=== PATIENT | male | born 1975 | race Caucasian/White ===

== ENCOUNTER 2023-08-04 20:53 | Emergency (ER) | payer OTHER ==
[~2023-08-04] VITALS: Ht 177.8 cm; Wt 100.0 kg
[~2023-08-04 20:53] MED LIST: ATIV2TAB PO; BUSP10TA PO; CLONI1TA PO; ZOLO100T PO
[2023-08-04] MEDS ORDERED: ATIV1TAB7 PO (22:01)
[2023-08-04] MEDS ORDERED: HOME MED LIST COMPLETE! XX SCH (22:05)
[2023-08-04 22:52] LABS: HEMATOCRIT 44.8 % (42.0-52.0); HEMOGLOBIN 15.3 g/dl (13.5-17.5); MEAN CORPUSCULAR HEMOGLOBIN 33.6 pg (27.0-33.0); MEAN CORPUSCULAR HGB CONC 34.2 g/dl (32.0-36.5); MEAN CORPUSCULAR VOLUME 98.5 fl (80.0-96.0); PLATELET COUNT, AUTOMATED 227 10^3/uL (150-450); RED BLOOD COUNT 4.55 10^6/uL (4.30-6.10)
[2023-08-04 23:17] LABS: AMPHETAMINES LEVEL URINE NEGATIVE (NEGATIVE); BARBITURATES URINE NEGATIVE (NEGATIVE); BENZODIAZEPINES URINE NEGATIVE (NEGATIVE); CANNABINOIDS URINE NEGATIVE (NEGATIVE); COCAINE METABOLITE URINE NEGATIVE (NEGATIVE); METHADONE URINE NEGATIVE (NEGATIVE); OPIATES URINE NEGATIVE (NEGATIVE); PHENCYCLIDINE URINE NEGATIVE (NEGATIVE)
[2023-08-04 23:21] LABS: ALBUMIN 3.1 G/DL (3.2-5.2); ALKALINE PHOSPHATASE 109 U/L (46-116); ALT/SGPT 18 U/L (7.0-40); AST/SGOT 15 U/L (<34); BILIRUBIN,DIRECT < 0.1 MG/DL (<0.4); BILIRUBIN,TOTAL 0.2 MG/DL (0.3-1.2); BLOOD UREA NITROGEN 7 MG/DL (9-23); CALCIUM LEVEL 7.8 MG/DL (8.5-10.1); CARBON DIOXIDE LEVEL 28 MMOL/L (20-31); CHLORIDE LEVEL 110 MMOL/L (98-107); CREATININE FOR GFR 0.65 MG/DL (0.70-1.30); GLOMERULAR FILTRATION RATE > 60.0 (>60); GLUCOSE, FASTING 107 MG/DL (60-100); POTASSIUM SERUM 3.8 MMOL/L (3.5-5.1); SALICYLATE LEVEL < 3.0 MG/DL (<30); SODIUM LEVEL 145 MMOL/L (136-145); TOTAL PROTEIN 6.3 G/DL (5.7-8.2)
[2023-08-04 23:23] LABS: THYROID STIMULATING HORMONE 0.986 uIU/ML (0.55-4.78)
[2023-08-05 05:08] VITALS: TEMP 97.1; O2SAT 99
[2023-08-05] MEDS ORDERED: OXAZEPAM 15MG CAP PO ONE ×2 (05:15→12:25)
[2023-08-05] MEDS ORDERED: MULTIVITAMINS/MINERALS THERAP 1 TAB PO SCH (09:00)
[2023-08-05] MEDS ORDERED: FOLIC ACID 1MG TAB PO SCH (09:00)
[2023-08-05] MEDS ORDERED: THIAMINE 100 MG TAB PO SCH (09:00)
[2023-08-05] MEDS ORDERED: SERTRALINE 100 MG TAB PO SCH (10:00)
[2023-08-05] MEDS ORDERED: busPIRone 10 MG TAB PO SCH (10:00)
[2023-08-05] MEDS ORDERED: LORazepam 2 MG TAB PO PRN (12:25)
[2023-08-05 14:20] VITALS: BP 130/88
== END 2023-08-05 16:00 | disposition home or self-care (01) ==
LOC: M ED 20:53
DX: F10.129 Alcohol abuse with intoxication, unspecified (principal); F32.A Depression, unspecified; Z79.899 Other long term (current) drug therapy

== ENCOUNTER 2023-08-13 23:44 | Emergency (ER) | payer OTHER ==
[~2023-08-13 23:44] MED LIST changes: +ATIV1TAB7 PO
[2023-08-14 02:44] LABS: HEMATOCRIT 42.2 % (42.0-52.0); HEMOGLOBIN 14.4 g/dl (13.5-17.5); MEAN CORPUSCULAR HGB CONC 34.1 g/dl (32.0-36.5); MEAN CORPUSCULAR VOLUME 96.8 fl (80.0-96.0); PLATELET COUNT, AUTOMATED 213 10^3/uL (150-450); RED BLOOD COUNT 4.36 10^6/uL (4.30-6.10); WHITE BLOOD COUNT 5.4 10^3/uL (4.0-10.0)
[2023-08-14] MEDS ORDERED: OXAZEPAM 15MG CAP PO ONE (03:00)
[2023-08-14 03:23] LABS: AMPHETAMINES LEVEL URINE NEGATIVE (NEGATIVE); BARBITURATES URINE NEGATIVE (NEGATIVE); BENZODIAZEPINES URINE NEGATIVE (NEGATIVE); COCAINE METABOLITE URINE NEGATIVE (NEGATIVE); METHADONE URINE NEGATIVE (NEGATIVE); OPIATES URINE NEGATIVE (NEGATIVE); PHENCYCLIDINE URINE NEGATIVE (NEGATIVE)
[2023-08-14 03:37] LABS: CANNABINOIDS URINE POSITIVE (NEGATIVE)
[2023-08-14 03:49] LABS: ETHYL ALCOHOL (ETHANOL) 0.254 % (0.000-0.010)
[2023-08-14 03:50] LABS: ALKALINE PHOSPHATASE 99 U/L (46-116); ALT/SGPT 19 U/L (7.0-40); AST/SGOT 20 U/L (<34); BILIRUBIN,DIRECT < 0.1 MG/DL (<0.4); BILIRUBIN,TOTAL < 0.2 MG/DL (0.3-1.2); BLOOD UREA NITROGEN 11 MG/DL (9-23); CALCIUM LEVEL 7.2 MG/DL (8.5-10.1); CARBON DIOXIDE LEVEL 25 MMOL/L (20-31); CHLORIDE LEVEL 106 MMOL/L (98-107); CREATININE FOR GFR 0.61 MG/DL (0.70-1.30); GLOMERULAR FILTRATION RATE > 60.0 (>60); GLUCOSE, FASTING 92 MG/DL (60-100); POTASSIUM SERUM 3.7 MMOL/L (3.5-5.1); SALICYLATE LEVEL < 3.0 MG/DL (<30); SODIUM LEVEL 142 MMOL/L (136-145); TOTAL PROTEIN 5.8 G/DL (5.7-8.2)
[2023-08-14 03:52] LABS: THYROID STIMULATING HORMONE 1.127 uIU/ML (0.55-4.78)
[2023-08-14 03:57] LABS: CPK CREATINE PHOSPHOKINASE 58 U/L (46-171)
[2023-08-14 08:30] VITALS: BP 122/77; TEMP 97.5; O2SAT 97
== END 2023-08-14 09:10 | disposition short-term general hospital (02) ==
LOC: M ED 23:44 → EDBD 23:44 → M ED 08-14 09:10
DX: F10.129 Alcohol abuse with intoxication, unspecified (principal); F32.A Depression, unspecified; Z79.899 Other long term (current) drug therapy

== ENCOUNTER 2023-08-29 22:20 | Emergency (ER) | payer OTHER ==
[~2023-08-29] VITALS: Ht 177.8 cm; Wt 109.1 kg
[2023-08-29 22:21] VITALS: TEMP 97; O2SAT 95
[2023-08-29] MEDS ORDERED: KETOROLAC 60MG 2ML VIAL IM ONE (23:45)
[2023-08-30] MEDS ORDERED: OXAZEPAM 15MG CAP PO ONE (02:35)
[2023-08-30] MEDS ORDERED: NS 1,000 ML IV ONE (03:00)
[2023-08-30 03:47] LABS: BASO % 0.5 % (0.0-1.0); EOS # 0.1 10^3/uL (0.0-0.5); EOS % 1.9 % (0.0-3.0); HEMATOCRIT 42.2 % (42.0-52.0); HEMOGLOBIN 14.4 g/dl (13.5-17.5); LYMPH # 1.5 10^3/uL (1.5-5.0); LYMPH % 26.8 % (24.0-44.0); MEAN CORPUSCULAR HEMOGLOBIN 32.7 pg (27.0-33.0); MEAN CORPUSCULAR HGB CONC 34.1 g/dl (32.0-36.5); MEAN CORPUSCULAR VOLUME 95.7 fl (80.0-96.0); MONO # 0.3 10^3/uL (0.0-0.8); MONO % 5.7 % (2.0-8.0); NEUTROPHILS # 3.7 10^3/uL (1.5-8.5); NEUTROPHILS % 64.9 % (36.0-66.0); PLATELET COUNT, AUTOMATED 168 10^3/uL (150-450); RED BLOOD COUNT 4.41 10^6/uL (4.30-6.10); WHITE BLOOD COUNT 5.8 10^3/uL (4.0-10.0)
[2023-08-30 04:00] VITALS: BP 176/103
[2023-08-30 04:13] LABS: ETHYL ALCOHOL (ETHANOL) 0.027 % (0.000-0.010)
[2023-08-30 04:16] LABS: BLOOD UREA NITROGEN 9 MG/DL (9-23); CALCIUM LEVEL 8.2 MG/DL (8.5-10.1); CARBON DIOXIDE LEVEL 25 MMOL/L (20-31); CHLORIDE LEVEL 103 MMOL/L (98-107); CREATININE FOR GFR 0.63 MG/DL (0.70-1.30); GLOMERULAR FILTRATION RATE > 60.0 (>60); GLUCOSE, FASTING 129 MG/DL (60-100); POTASSIUM SERUM 5.2 MMOL/L (3.5-5.1); SODIUM LEVEL 137 MMOL/L (136-145)
[2023-08-30] MEDS ORDERED: LORazepam 2 MG TAB PO STA (05:26)
[2023-08-30] MEDS ORDERED: amLODIPine 5 MG TAB PO ONE (06:05)
[2023-08-30 06:08] VITALS: BP 176/103
[2023-08-30] MEDS ORDERED: CLINDAMYCIN 150MG CAPSULE PO ONE (06:20)
[2023-08-30] MEDS ORDERED: CLIN150C17 PO (06:24)
[2023-08-30] MEDS ORDERED: OXAZ30CA2 PO (06:24)
== END 2023-08-30 06:49 | disposition home or self-care (01) ==
LOC: M ED 22:20
DX: K02.9 Dental caries, unspecified (principal); F10.220 Alcohol dependence with intoxication, uncomplicated
CPT/HCPCS: 80048; 82077; 85025; 96360; 96372; 99284; J1885

== ENCOUNTER 2023-09-03 20:12 | Inpatient (IN) | payer OTHER ==
[~2023-09-03] VITALS: Ht 177.8 cm; Wt 104.5 kg
[~2023-09-03 20:12] MED LIST changes: +CLIN150C17 PO; +OXAZ30CA2 PO
[2023-09-03 21:10] LABS: HEMATOCRIT 50.2 % (42.0-52.0); HEMOGLOBIN 17.5 g/dl (13.5-17.5); MEAN CORPUSCULAR HGB CONC 34.9 g/dl (32.0-36.5); MEAN CORPUSCULAR VOLUME 94.7 fl (80.0-96.0); PLATELET COUNT, AUTOMATED 269 10^3/uL (150-450)
[2023-09-03 21:23] LABS: AMPHETAMINES LEVEL URINE NEGATIVE (NEGATIVE); BARBITURATES URINE NEGATIVE (NEGATIVE); COCAINE METABOLITE URINE NEGATIVE (NEGATIVE); METHADONE URINE NEGATIVE (NEGATIVE)
[2023-09-03 21:24] LABS: OPIATES URINE NEGATIVE (NEGATIVE); PHENCYCLIDINE URINE NEGATIVE (NEGATIVE)
[2023-09-03 21:25] LABS: BENZODIAZEPINES URINE POSITIVE (NEGATIVE); CANNABINOIDS URINE POSITIVE (NEGATIVE); ETHYL ALCOHOL (ETHANOL) 0.269 % (0.000-0.010)
[2023-09-03 21:27] LABS: ALBUMIN 3.9 G/DL (3.2-5.2); ALKALINE PHOSPHATASE 124 U/L (46-116); ALT/SGPT 91 U/L (7.0-40); AST/SGOT 54 U/L (<34); BILIRUBIN,DIRECT < 0.1 MG/DL (<0.4); BILIRUBIN,TOTAL 0.2 MG/DL (0.3-1.2); BLOOD UREA NITROGEN 14 MG/DL (9-23); CALCIUM LEVEL 9.1 MG/DL (8.5-10.1); CARBON DIOXIDE LEVEL 24 MMOL/L (20-31); CHLORIDE LEVEL 103 MMOL/L (98-107); CREATININE FOR GFR 0.77 MG/DL (0.70-1.30); GLOMERULAR FILTRATION RATE > 60.0 (>60); GLUCOSE, FASTING 112 MG/DL (60-100); POTASSIUM SERUM 4.3 MMOL/L (3.5-5.1); SALICYLATE LEVEL < 3.0 MG/DL (<30); SODIUM LEVEL 139 MMOL/L (136-145); TOTAL PROTEIN 7.8 G/DL (5.7-8.2)
[2023-09-03 21:29] LABS: THYROID STIMULATING HORMONE 1.561 uIU/ML (0.55-4.78)
[2023-09-04] MEDS ORDERED: OXAZEPAM 15MG CAP PO ONE (04:35)
[2023-09-04] MEDS ORDERED: MED REC CURRENTLY UNOBTAINABLE XX SCH (06:10)
[2023-09-04] MEDS ORDERED: IBUPROFEN 400MG TAB PO PRN (06:55)
[2023-09-04] MEDS ORDERED: MAALOX 30 ML SUSP *UDC PO PRN (06:55)
[2023-09-04] MEDS ORDERED: LORazepam 2 MG TAB PO PRN (06:55)
[2023-09-04] MEDS ORDERED: ACETAMINOPHEN TAB 650MG DOSE (2X325MG) PO PRN (06:55)
[2023-09-04] MEDS ORDERED: MOM 30ML SUSPENSION UDC PO PRN (06:55)
[2023-09-04] MEDS ORDERED: diphenhydrAMINE 25MG CAP PO PRN (06:55)
[2023-09-04] MEDS: MULTIVITAMINS/MINERALS THERAP 1 TAB PO SCH (08:14)
[2023-09-04] MEDS: THIAMINE 100 MG TAB PO SCH ×2 (08:15→20:28)
[2023-09-04] MEDS: FOLIC ACID 1MG TAB PO SCH (08:15)
[2023-09-04 08:35] VITALS: BP 137/84; TEMP 97.6; O2SAT 97
[2023-09-04] MEDS ORDERED: OXAZ30CA2 PO (13:15)
[2023-09-04] MEDS ORDERED: TRAZ1TAB14 PO (13:15)
[2023-09-04] MEDS ORDERED: RISP-7 PO (13:15)
[2023-09-04] MEDS ORDERED: OXAZEPAM 10MG CAP PO SCH (13:20)
[2023-09-04 14:00] VITALS: BP 137/84
[2023-09-04] MEDS: SERTRALINE 100 MG TAB PO SCH (14:08)
[2023-09-04] MEDS: OXAZEPAM 15MG CAP PO SCH ×3 (14:09→23:57)
[2023-09-04] MEDS: busPIRone 10 MG TAB PO SCH ×2 (15:58→20:30)
[2023-09-04] MEDS: cloNIDine 0.1MG TABLET PO SCH ×2 (15:58→20:29)
[2023-09-04 16:04] LABS: HEPATITIS C VIRUS ABY INDEX 0.06 INDEX (<0.8)
[2023-09-04 16:05] LABS: HEPATITIS B CORE ANTIBODY IGM NEGATIVE (NEGATIVE)
[2023-09-04 16:56] VITALS: BP 150/76; TEMP 98
[2023-09-04] MEDS: traZODone 50 MG TAB PO PRN (20:28)
[2023-09-04] MEDS ORDERED: OXAZEPAM 15MG CAP PO SCH (22:00)
[2023-09-04 22:01] VITALS: BP 111/62
[2023-09-05 06:01] VITALS: BP 112/74; TEMP 97.4; O2SAT 96
[2023-09-05 06:07] VITALS: BP 112/74
[2023-09-05] MEDS: OXAZEPAM 15MG CAP PO SCH ×3 (06:10→18:04)
[2023-09-05] MEDS: SERTRALINE 100 MG TAB PO SCH (09:27)
[2023-09-05] MEDS: MULTIVITAMINS/MINERALS THERAP 1 TAB PO SCH (09:27)
[2023-09-05] MEDS: busPIRone 10 MG TAB PO SCH ×3 (09:27→20:35)
[2023-09-05] MEDS: FOLIC ACID 1MG TAB PO SCH (09:27)
[2023-09-05] MEDS: cloNIDine 0.1MG TABLET PO SCH ×3 (09:27→20:35)
[2023-09-05] MEDS: THIAMINE 100 MG TAB PO SCH ×2 (09:28→20:35)
[2023-09-05 12:19] LABS: ALBUMIN 3.4 G/DL (3.2-5.2); ALKALINE PHOSPHATASE 110 U/L (46-116); ALT/SGPT 65 U/L (7.0-40); AST/SGOT 31 U/L (<34); BILIRUBIN,DIRECT 0.2 MG/DL (<0.4); BILIRUBIN,TOTAL 0.5 MG/DL (0.3-1.2); TOTAL PROTEIN 6.8 G/DL (5.7-8.2)
[2023-09-05 14:00] VITALS: BP 119/60; TEMP 97.4
[2023-09-05 18:14] VITALS: BP 139/85; TEMP 97.7
[2023-09-05 20:32] VITALS: BP 142/83
[2023-09-05] MEDS: PILL CUTTER 1 EACH XX PRN (20:34)
[2023-09-05] MEDS: traZODone 50 MG TAB PO PRN (20:35)
[2023-09-05] MEDS: NICOTINE 21MG/24HR 1 EA TRANSDERMAL TD PRN (21:50)
[2023-09-05 22:00] VITALS: BP 120/60
[2023-09-06] MEDS: OXAZEPAM 15MG CAP PO SCH ×5 (00:07→23:40)
[2023-09-06 06:28] VITALS: BP 127/76; TEMP 97.3; O2SAT 98
[2023-09-06 08:00] VITALS: BP 127/76
[2023-09-06] MEDS: NICOTINE 21MG/24HR 1 EA TRANSDERMAL TD PRN (08:08)
[2023-09-06] MEDS: THIAMINE 100 MG TAB PO SCH ×2 (08:10→20:24)
[2023-09-06] MEDS: MULTIVITAMINS/MINERALS THERAP 1 TAB PO SCH (08:10)
[2023-09-06] MEDS: FOLIC ACID 1MG TAB PO SCH (08:10)
[2023-09-06] MEDS: cloNIDine 0.1MG TABLET PO SCH ×3 (08:10→20:24)
[2023-09-06] MEDS: SERTRALINE 100 MG TAB PO SCH (08:11)
[2023-09-06] MEDS: busPIRone 10 MG TAB PO SCH ×3 (08:11→20:24)
[2023-09-06 14:00] VITALS: BP 136/87; TEMP 97.8
[2023-09-06 16:00] VITALS: BP 136/87
[2023-09-06] MEDS: OLANZapine ORAL DISINTEGRATING TAB 5MG PO PRN (16:16)
[2023-09-06] MEDS: PILL CUTTER 1 EACH XX PRN ×2 (16:19→20:24)
[2023-09-06] MEDS: traZODone 50 MG TAB PO PRN (20:23)
[2023-09-07 02:40] VITALS: BP 122/66
[2023-09-07] MEDS: OXAZEPAM 15MG CAP PO SCH ×3 (05:25→17:38)
[2023-09-07 06:40] VITALS: BP 109/56
[2023-09-07 06:46] VITALS: BP 109/56; TEMP 97.1; O2SAT 98
[2023-09-07 08:09] VITALS: BP 123/71
[2023-09-07] MEDS: cloNIDine 0.1MG TABLET PO SCH ×3 (08:10→21:49)
[2023-09-07] MEDS: FOLIC ACID 1MG TAB PO SCH (08:10)
[2023-09-07] MEDS: MULTIVITAMINS/MINERALS THERAP 1 TAB PO SCH (08:10)
[2023-09-07] MEDS: SERTRALINE 100 MG TAB PO SCH (08:11)
[2023-09-07] MEDS: busPIRone 10 MG TAB PO SCH ×3 (08:11→21:47)
[2023-09-07] MEDS: PILL CUTTER 1 EACH XX PRN (08:12)
[2023-09-07] MEDS: NICOTINE 21MG/24HR 1 EA TRANSDERMAL TD PRN (08:17)
[2023-09-07] MEDS: OLANZapine ORAL DISINTEGRATING TAB 5MG PO PRN (13:21)
[2023-09-07 16:27] VITALS: BP 122/66; TEMP 98.2; O2SAT 98
[2023-09-07] MEDS: traZODone 50 MG TAB PO PRN (22:48)
[2023-09-08 06:45] VITALS: BP 134/87; TEMP 97.1; O2SAT 96
[2023-09-08 06:49] VITALS: BP 134/87
[2023-09-08] MEDS ORDERED: INFLUENZA QUADRIVALENT PF VACCINE 0.5ML SYRINGE IM.IMMUN ONE (08:00)
[2023-09-08 08:14] VITALS: BP 134/87
[2023-09-08] MEDS: MULTIVITAMINS/MINERALS THERAP 1 TAB PO SCH (08:14)
[2023-09-08] MEDS: cloNIDine 0.1MG TABLET PO SCH (08:14)
[2023-09-08] MEDS: SERTRALINE 100 MG TAB PO SCH (08:14)
[2023-09-08] MEDS: busPIRone 10 MG TAB PO SCH (08:14)
[2023-09-08] MEDS: NICOTINE 21MG/24HR 1 EA TRANSDERMAL TD PRN (08:14)
[2023-09-08] MEDS: FOLIC ACID 1MG TAB PO SCH (08:14)
[2023-09-08] MEDS ORDERED: VITMTA PO (08:48)
[2023-09-08] MEDS ORDERED: TRAZ-252 PO (08:48)
[2023-09-08] MEDS ORDERED: FOLI1TAB11 PO (08:48)
[2023-09-08] MEDS ORDERED: BUSP10TA PO (08:48)
[2023-09-08] MEDS ORDERED: ZOLO100T PO (08:48)
[2023-09-08] MEDS ORDERED: CLONI1TA PO (08:48)
[2023-09-08] MEDS ORDERED: OXAZEPAM 15MG CAP PO SCH (09:00)
== END 2023-09-08 12:40 | disposition home or self-care (01) | DRG 751 ==
LOC: M ED 20:12 → M ED INP 09-04 06:54 → M PSY 09-04 08:39
PROVIDERS: ADMIT Psychiatry & Neurology Psychiatry; ATTEND Student in an Organized Health Care Education/Training Program
DX: F33.2 Major depressive disorder, recurrent severe without psychotic features (principal); F10.20 Alcohol dependence, uncomplicated; F41.1 Generalized anxiety disorder; R45.851 Suicidal ideations; F90.9 Attention-deficit hyperactivity disorder, unspecified type; F17.210 Nicotine dependence, cigarettes, uncomplicated; Z56.0 Unemployment, unspecified; R74.01 Elevation of levels of liver transaminase levels; Z79.899 Other long term (current) drug therapy

== ENCOUNTER 2024-08-09 19:00 | Inpatient (IN) | payer MEDICAID, OTHER ==
[~2024-08-09] VITALS: Ht 180.3 cm; Wt 109.1 kg
[~2024-08-09 19:00] MED LIST changes: +FOLI1TAB11 PO; +RISP0.5T82 PO; +TRAZ-252 PO; +TRAZ1TAB14 PO; +VITMTA PO
[2024-08-09 20:12] LABS: HEMATOCRIT 39.5 % (42.0-52.0); HEMOGLOBIN 13.7 g/dl (13.5-17.5); MEAN CORPUSCULAR HEMOGLOBIN 31.7 pg (27.0-33.0); MEAN CORPUSCULAR HGB CONC 34.7 g/dl (32.0-36.5); MEAN CORPUSCULAR VOLUME 91.4 fl (80.0-96.0); PLATELET COUNT, AUTOMATED 250 10^3/uL (150-450); RED BLOOD COUNT 4.32 10^6/uL (4.30-6.10); WHITE BLOOD COUNT 6.1 10^3/uL (4.0-10.0)
[2024-08-09 20:24] LABS: AMPHETAMINES LEVEL URINE NEGATIVE (NEGATIVE); BARBITURATES URINE NEGATIVE (NEGATIVE)
[2024-08-09 20:25] LABS: CANNABINOIDS URINE NEGATIVE (NEGATIVE); COCAINE METABOLITE URINE NEGATIVE (NEGATIVE); METHADONE URINE NEGATIVE (NEGATIVE); OPIATES URINE NEGATIVE (NEGATIVE); PHENCYCLIDINE URINE NEGATIVE (NEGATIVE)
[2024-08-09 20:28] LABS: BENZODIAZEPINES URINE POSITIVE (NEGATIVE); ETHYL ALCOHOL (ETHANOL) 0.174 % (0.000-0.010)
[2024-08-09 20:29] LABS: ALBUMIN 3.2 G/DL (3.2-5.2); ALKALINE PHOSPHATASE 93 U/L (40-129); ALT/SGPT 50 U/L (7.0-40); AST/SGOT 31 U/L (<34); BILIRUBIN,DIRECT < 0.1 MG/DL (<0.4); BILIRUBIN,TOTAL 0.2 MG/DL (0.3-1.2); BLOOD UREA NITROGEN 10 MG/DL (9-23); CALCIUM LEVEL 8.8 MG/DL (8.5-10.1); CARBON DIOXIDE LEVEL 24 MMOL/L (20-31); CHLORIDE LEVEL 108 MMOL/L (98-107); CREATININE FOR GFR 0.75 MG/DL (0.70-1.30); GLOMERULAR FILTRATION RATE > 60.0 (>60); GLUCOSE, FASTING 110 MG/DL (60-100); POTASSIUM SERUM 4.1 MMOL/L (3.5-5.1); SALICYLATE LEVEL < 3.0 MG/DL (<30); SODIUM LEVEL 142 MMOL/L (136-145); TOTAL PROTEIN 6.7 G/DL (5.7-8.2)
[2024-08-10] MEDS ORDERED: MAALOX 30 ML SUSP *UDC PO PRN (10:50)
[2024-08-10] MEDS ORDERED: MOM 30ML SUSPENSION UDC PO PRN (10:50)
[2024-08-10] MEDS ORDERED: HOME MED LIST COMPLETE! XX SCH (11:00)
[2024-08-10 12:06] VITALS: BP 168/95; TEMP 97.8; O2SAT 98
[2024-08-10] MEDS: diphenhydrAMINE 25MG CAP PO PRN (12:08)
[2024-08-10 13:06] VITALS: BP 143/89; TEMP 97.8; O2SAT 98
[2024-08-10 15:27] VITALS: BP 112/63; TEMP 97.3; O2SAT 98
[2024-08-10] MEDS ORDERED: LORazepam 2 MG TAB PO PRN (16:20)
[2024-08-10 16:28] VITALS: BP 118/85
[2024-08-10] MEDS: NICOTINE 21MG/24HR 1 EA TRANSDERMAL TD PRN (16:30)
[2024-08-10] MEDS: THIAMINE 100 MG TAB PO SCH (16:35)
[2024-08-10] MEDS: OLANZapine ORAL DISINTEGRATING TAB 5MG PO PRN (18:11)
[2024-08-10] MEDS: busPIRone 10 MG TAB PO SCH (20:05)
[2024-08-10] MEDS: cloNIDine 0.1MG TABLET PO SCH (20:05)
[2024-08-10 21:11] VITALS: BP 122/72; TEMP 97.1; O2SAT 99
[2024-08-10 22:00] VITALS: BP 122/72
[2024-08-11 06:00] VITALS: BP 125/86
[2024-08-11 06:16] VITALS: BP 125/86; TEMP 97.1; O2SAT 96
[2024-08-11] MEDS: IBUPROFEN 400MG TAB PO PRN (06:32)
[2024-08-11] MEDS: MULTIVITAMINS/MINERALS THERAP 1 TAB PO SCH (08:47)
[2024-08-11] MEDS: FOLIC ACID 1MG TAB PO SCH (08:47)
[2024-08-11] MEDS: SERTRALINE HCL 50 MG TAB PO SCH (08:50)
[2024-08-11 14:00] VITALS: BP 143/75; TEMP 97.5; O2SAT 97
[2024-08-11 22:02] VITALS: BP 142/84
[2024-08-12] MEDS: ACETAMINOPHEN 325 MG TAB PO PRN (01:38)
[2024-08-12 06:00] VITALS: BP 129/81
[2024-08-12 06:25] VITALS: BP 129/81; TEMP 97.9; O2SAT 98
[2024-08-12] MEDS: FLUZONE VACCINE TRIVALENT PF(2024-25) 0.5ML SYRINGE IM.IMMUN ONE (08:07)
[2024-08-12 14:07] VITALS: BP 122/56
[2024-08-12 16:05] VITALS: BP 142/77; TEMP 98.5; O2SAT 98
[2024-08-12 20:31] VITALS: BP 134/78
[2024-08-12] MEDS: traZODone 50 MG TAB PO PRN (20:31)
[2024-08-12 22:10] VITALS: BP 134/78
[2024-08-13 06:37] VITALS: BP 152/83; TEMP 97.3; O2SAT 99
[2024-08-13 06:40] VITALS: BP 155/83
[2024-08-13 14:00] VITALS: BP 148/90
[2024-08-14 06:33] VITALS: BP 119/67; TEMP 97.3; O2SAT 99
[2024-08-14 09:01] VITALS: BP 119/67
[2024-08-14] MEDS ORDERED: SERT50TA29 PO (10:20)
== END 2024-08-14 13:05 | disposition home or self-care (01) | DRG 751 ==
LOC: M ED 19:00 → M ED INP 08-10 10:47 → M PSY 08-10 12:00
PROVIDERS: ADMIT Psychiatry & Neurology Psychiatry; ATTEND Psychiatry & Neurology Psychiatry
DX: F33.9 Major depressive disorder, recurrent, unspecified (principal); R45.851 Suicidal ideations; F10.229 Alcohol dependence with intoxication, unspecified; F41.1 Generalized anxiety disorder; F90.9 Attention-deficit hyperactivity disorder, unspecified type; Z59.00 Homelessness unspecified; Z62.810 Personal history of physical and sexual abuse in childhood